=== PATIENT | male | born 1965 | race Caucasian/White ===

== ENCOUNTER 2016-08-05 21:06 | Emergency (ER) | payer MEDICAID ==
[2016-08-05 21:26] VITALS: BP 154/81; PULSE 93; TEMP 98.8; BMI 27.1
[2016-08-05] MEDS ORDERED: OXYCODONE HCL 5 MG TABLET PO ONE (21:31)
--- NOTE | 2016-08-05 21:34 | EDPRACDOC ---
- General Information Stated Complaint: RT HAND PAIN/SWELLING Time Seen by Provider: 08/05/16 21:26 Information Source: Patient Home Medications: Home Medications Alprazolam [Xanax] 0.25 mg PO DAILY PRN 10/17/15 Aspirin 325 mg PO DAILY 10/17/15 Docusate Sodium [Colace] 100 mg PO BID 10/17/15 Gabapentin [Neurontin] 300 mg PO TID 10/17/15 Iron Polysaccharide Complex [Poly-Iron] 150 mg PO DAILY 10/17/15 Oxycodone Immediate Release [Oxycodone Immediate Release (OxyIR)] 15 mg PO Q4H PRN 10/17/15 Sennosides/Docusate Sodium [Senna-Docusate Sodium Tablet] 2 each PO HS 10/17/15 Vitamin B Complex with C [Nephro-Luciano] 1 tab PO DAILY 10/17/15 Warfarin Sodium [Coumadin] 10 mg PO DAILY 10/17/15 Acetaminophen [Tylenol] 650 mg PO Q6H PRN 10/22/15 Furosemide [Lasix] 40 mg PO BID 10/22/15 Polyethylene Glycol 3350 [Miralax] 17 gm PO DAILY PRN 10/22/15 Probiotic Blend [Yuly Q] 1 tab PO BID 10/22/15 Metoprolol Tartrate [Lopressor] 25 mg PO BID 12/31/15 Mirtazapine 15 mg PO HS 12/31/15 Sertraline HCl 50 mg PO DAILY 12/31/15 Oxycodone Immediate Release [Oxycodone Immediate Release (OxyIR)] 5 mg PO Q6H PRN #20 tab 08/05/16 Allergies/Adverse Reactions: Allergies Allergy/AdvReac Type Severity Reaction Status Date / Time No Known Allergies Allergy Verified 11/04/15 08:54 - History of 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 NOW C/O RIGHT HAND SWELLING AND PAIN WITH DECREASED ROM OF 5TH FINGER Location: Reports: Right, Other (5TH METACARPAL) Mechanism: Reports: Blunt Trauma, Punch Circumstances: Reports: Work-Related Tetanus Up To Date?: No Associated Signs & Symptoms: Reports: Hand Pain, Other (SWELLING DECREASED ROM) ED Past Medical History - History Reviewed Yes Nurses notes reviewed and agree except as marked Travel Outside of [place] in the Last 3 Months?: No - Patient Medical History Cardiac History: Reports: Congestive Heart Failure, Valvular Heart Disease Respiratory History: Reports: Asthma Psychological History: Reports: Anxiety Systemic History: Reports: Anemia Additional Past Medical History: CHRONIC BACK PAIN Surgical History: Reports: Other (TRICUSPID AND MITRAL VALVE ANNULOPLASTY) - Social Medical History Smoking Status: Former smoker ETOH: None Substance Abuse: None Lives With: Other Lives In: Home EDM Review of Systems - Review of Systems ROS Negative Except as Marked: Yes All systems reviewed and were negative except as marked Constitutional: No Symptoms Reported. negative: Fever, Chills, Weakness, Fatigue, Loss of Appetite Eyes: No Symptoms Reported. negative: Redness, Blurred Vision, Double Vision, Discharge, Pain, Light Sensitive, Photophobia Ears: No Symptoms Reported. negative: Pain, Hearing Loss, Drainage, Ear Pulling Throat: No Symptoms Reported. negative: Pain, Swelling Nose: No Symptoms Reported. negative: Congestion, Bleeding, Discharge, Injection, Swelling, Deformity, Ecchymosis, Tender, Abrasion, Laceration Mouth: No Symptoms Reported. negative: Pain, Drooling Respiratory: No Symptoms Reported. negative: Cough, Brassy Cough, Barky Cough, Shortness of Breath, Wheezing, Hemoptysis Cardiovascular: No Symptoms Reported. negative: Chest Pain, Palpitations, Syncope, Edema, Orthopnea, PND, Skin Mottling, Cyanosis Gastrointestinal: No Symptoms Reported. negative: Pain, Constipation, Nausea, Vomiting, Diarrhea, Melena, Formula Intolerance Genitourinary: No Symptoms Reported. negative: Dysuria, Hematuria, Frequency, Discharge, Bleeding, Testicular Pain, Neurological: No Symptoms Reported. negative: Headache, Dizziness, Seizure, Numbness, Weakness, Speech Difficulty, Gait Difficulty Musculoskeletal: Hand (RIGHT LATERAL HAND SWELLING DECREASED ROM). negative: Arm, Ankle, Back, Chestwall, Elbow, Forearm, Femur, Foot, Hip, Knee, Leg, Neck, Pelvis, Ribs, Shoulder, Wrist Integumentary: No Symptoms Reported. negative: Itching, Rash, Bruising, Wound Allergic/Immunologic: No Symptoms Reported. negative: Hives, Itching Hematologic: No Symptoms Reported. negative: Lymphadenopathy, Easy Bruising, Easy Bleeding Endocrine: No Symptoms Reported. negative: Weight Gain, Weight Loss Psychiatric: No Symptoms Reported. negative: Anxiety, Depression, Hallucinations, Insomnia, Suicidal - Physical Exam Constitutional: No apparent distress, Alert (Awake) Oriented to: Time, Person, Place Last recorded Vital Signs: Last Vital Signs Temp 98.8 F 08/05/16 21:24 Pulse 93 08/05/16 21:24 Resp 20 08/05/16 21:24 BP 154/81 08/05/16 21:24 Pulse Ox 98 08/05/16 21:24 Oxygen Pulse Oxygen Saturation 98 O2 Device Room Air Oxygen Flow Rate Fraction of Inspired Oxygen ( FIO2) - HEENT Head: Normal ( normocephalic) Eye Exam: Normal (PERRL, EOMI, Sclera white) Oropharynx: Normal (Pharynx:Moist without exudate,Gums-no swelling) Tympanic Membrane: Normal ENT EAC: Normal TMJ: Normal Nose: No Symptoms Reported (septum midline) Neck: Normal (FROM, trachea at midline) - Respiratory/Cardiovascular Respiratory: Normal - CTA (BBS clear to auscultation without adventitious sounds ) Cardiovascular: Normal (RRR without murmur, gallop or rub) - GI Auscultation: Normal (NABS) Palpation: Normal (Soft,No rebound or guarding, non distended) Tenderness: Non tender Vinson's Sign: Negative - Bladder: Normal - Musculoskeletal Back: Normal (Non-Tender) Extremities: Normal (Normal tone, Pulses 2+ No cyanosis or edema, FROM) - Integumentary Skin: Normal, Warm, Dry Lymphatics: Normal (no adenopathy) - Neurologic Memory Impaired: Normal Motor Function: Normal (Normal tone, Pulses 2+ No cyanosis or edema, FROM) Cranial Nerve: Normal (CN II-X11 intact sensation, strength 5/5) Cerebellar: Normal Mood Description: Normal Perception: Normal ED Hand Problem Physical Exam - Musculoskeletal Hand: Swelling, Limited ROM, Mild Tenderness Wrist: Normal Digit: Normal Digit Strength: Normal Nail: Normal Nailbed: Normal Soft Tissue: Swelling Distal Function/Circulation: Normal - Integumentary Skin: Normal Lymphatics: Normal ED Procedures - Splinting HAND Location: RT Hand-Made Type: orthoglass Splint: ulnar (GUTTER) Pre-Proc Neuro Vasc Exam: normal Post-Proc Neuro Vasc Exam: normal Other Devices: Sling - Differential Diagnosis Contusion, Dislocation, Fracture, Metacarpal Fracture, Sprain - Diagnostic Imaging HAND Image interpreted by: Radiologist IMPRESSION: Fracture of the fifth metacarpal. Decision Time to Discharge: 21:52 - Departure Disposition: Home Condition: Stable Final Diagnosis: Boxers fracture Qualifiers: Encounter type: initial encounter Fracture type: closed Qualified Code(s): S62.309A - Unspecified fracture of unspecified metacarpal bone, initial encounter for closed fracture Instructions: Hand Fracture (ED) Education/Counseling Given To: Patient, Family Member Education/Counseling Given Regarding: Diagnosis, Treatment, Prognosis, Follow Up Referrals: Cornelio Nation MD [Primary Care Provider] - One Week Avelino De Santiago MD [Staff Physician] - One Week Prescriptions: Oxycodone Immediate Release [Oxycodone Immediate Release (OxyIR)] 5 mg PO Q6H PRN #20 tab PRN Reason: Pain Additional Instructions: RICE
--- NOTE | 2016-08-05 21:34 | DIRPT ---
CLINICAL DATA: Slammed hand in door. EXAM: RIGHT HAND - COMPLETE 3+ VIEW COMPARISON: None. FINDINGS: Fracture of the fifth metacarpal at the meta diaphysis distally. Mild dorsal angulation distal fracture fragment. Fracture does not enter the joint. Boxer's type fracture. IMPRESSION: Fracture of the fifth metacarpal. Electronically Signed By: Farhad Rodas M.D. On: 08/05/2016 21:31
== END 2016-08-05 22:03 | disposition home or self-care (01) ==
LOC: EDMC 21:06
DX: S62.396A Other fracture of fifth metacarpal bone, right hand, initial encounter for closed fracture (principal); W22.09XA Striking against other stationary object, initial encounter
CPT/HCPCS: 29125; 73130; 99283; J3490

== ENCOUNTER 2016-08-12 11:08 | Emergency (ER) | payer MEDICARE, MEDICAID ==
[2016-08-12 11:29] VITALS: BP 136/88; PULSE 97; TEMP 98.5; BMI 26.3
--- NOTE | 2016-08-12 11:54 | EDPRACDOC ---
- General Information Chief Complaint: Hand Pain Stated Complaint: RIGHT HAND PAIN Time Seen by Provider: 08/12/16 11:39 Information Source: Patient Mode of Arrival: Car Home Medications: Home Medications Alprazolam [Xanax] 0.25 mg PO DAILY PRN 10/17/15 Aspirin 325 mg PO DAILY 10/17/15 Docusate Sodium [Colace] 100 mg PO BID 10/17/15 Gabapentin [Neurontin] 300 mg PO TID 10/17/15 Iron Polysaccharide Complex [Poly-Iron] 150 mg PO DAILY 10/17/15 Oxycodone Immediate Release [Oxycodone Immediate Release (OxyIR)] 15 mg PO Q4H PRN 10/17/15 Sennosides/Docusate Sodium [Senna-Docusate Sodium Tablet] 2 each PO HS 10/17/15 Vitamin B Complex with C [Nephro-Luciano] 1 tab PO DAILY 10/17/15 Warfarin Sodium [Coumadin] 10 mg PO DAILY 10/17/15 Acetaminophen [Tylenol] 650 mg PO Q6H PRN 10/22/15 Furosemide [Lasix] 40 mg PO BID 10/22/15 Polyethylene Glycol 3350 [Miralax] 17 gm PO DAILY PRN 10/22/15 Probiotic Blend [Yuly Q] 1 tab PO BID 10/22/15 Metoprolol Tartrate [Lopressor] 25 mg PO BID 12/31/15 Mirtazapine 15 mg PO HS 12/31/15 Sertraline HCl 50 mg PO DAILY 12/31/15 Oxycodone Immediate Release [Oxycodone Immediate Release (OxyIR)] 5 mg PO Q6H PRN #20 tab 08/05/16 Alprazolam [Xanax] 1 mg PO BID #14 tablet 08/12/16 Oxycodone HCl [Oxycodone Immediate Release] 15 mg PO TID #21 tab 08/12/16 Allergies/Adverse Reactions: Allergies Allergy/AdvReac Type Severity Reaction Status Date / Time No Known Allergies Allergy Verified 11/04/15 08:54 - History of Present Illness Onset: last week HPI: PT PRESENTS TODAY WITH RIGHT HAND PAIN. PT WAS SEEN HERE LAST WEEK AND DX WITH BOXER'S FRACTURE. STATES HE HAD A FOLLOW UP APPT TO GET ORTHO REFERRAL FOR HAND, BUT DR. ROMERO HAS CANCELLED D/T IN THE FAMILY. IT WAS CONFIRMED YESTERDAY THAT THIS IS TRUE AND THAT DR. ROMERO OFFICE IS SENDING PTS HERE FOR MEDICATION REFILLS. PT IS NOT CURRENTLY WEARING SPLINT BECAUSE HE STATED THAT HIS HAND BECAME MORE SWOLLEN AND THE SPLINT WAS PINCHING HIS SKIN. Location: Reports: Right, 4th Finger, 5th Finger Mechanism: Reports: Punch Circumstances: Reports: Work-Related Associated Signs & Symptoms: Reports: Hand Pain ED Past Medical History - History Reviewed Yes Nurses notes reviewed and agree except as marked - Patient Medical History Cardiac History: Reports: Congestive Heart Failure, Valvular Heart Disease Respiratory History: Reports: Asthma Psychological History: Reports: Anxiety. Denies: Depression Systemic History: Reports: Anemia Additional Past Medical History: CHRONIC BACK PAIN Surgical History: Reports: Other (TRICUSPID AND MITRAL VALVE ANNULOPLASTY) - Social Medical History Smoking Status: Heavy tobacco smoker (5 or more cigarettes/day or daily pipe/ cigar) EDM Review of Systems - Review of Systems ROS Negative Except as Marked: Yes All systems reviewed and were negative except as marked Constitutional: No Symptoms Reported Respiratory: No Symptoms Reported Cardiovascular: No Symptoms Reported Gastrointestinal: No Symptoms Reported Neurological: No Symptoms Reported Musculoskeletal: Hand Integumentary: Bruising, Other (SWELLING) - Physical Exam Constitutional: Alert (Awake), No apparent distress Oriented to: Time, Person, Place Last recorded Vital Signs: Last Vital Signs Temp 98.5 F 08/12/16 11:28 Pulse 97 08/12/16 11:28 Resp 20 08/12/16 11:28 BP 136/88 08/12/16 11:28 Pulse Ox 96 08/12/16 11:28 Oxygen Pulse Oxygen Saturation 96 O2 Device Room Air Oxygen Flow Rate Fraction of Inspired Oxygen ( FIO2) - HEENT Head: Normal Eye Exam: Normal Neck: Normal, Denies Pain, Midline - Respiratory/Cardiovascular Respiratory: Normal - CTA Cardiovascular: Normal - GI Palpation: Normal Tenderness: Non tender - Musculoskeletal Back: Normal Extremities: Other (NOTED BRUISING/SWELLING TO RIGHT HAND ALONG 4TH/5TH METACARPAL; COMPARTMENTS SOFT; CAP REFILL < 1) - Integumentary Skin: Normal Lymphatics: Normal - Neurologic Cerebellar: Normal Mood Description: Normal Thought: Coherent Perception: Normal ED Hand Problem Physical Exam - Musculoskeletal Hand: Swelling, Limited ROM, Moderate Tenderness Wrist: Normal Digit: Normal Digit Strength: Normal Nail: Normal Nailbed: Normal Soft Tissue: Tender, Swelling Distal Function/Circulation: Normal - Integumentary Skin: Ecchymosis, Swelling Lymphatics: Normal ED Procedures - Splinting 1st splint Location: RIGHT HAND Hand-Made Type: orthoglass Splint: ulnar Pre-Proc Neuro Vasc Exam: normal Post-Proc Neuro Vasc Exam: normal Other Devices: Other (PT HAS SLING AT HOME.) Decision Time to Discharge: 11:51 - Departure Disposition: Home Condition: Good Final Diagnosis: Fracture of hand, Medication refill, SPLINT-DANIELA Instructions: RICE: Routine Care for Injuries, Hand Fracture (ED) Education/Counseling Given To: Patient Education/Counseling Given Regarding: Diagnosis, Treatment, Follow Up Referrals: None,No Provider [Primary Care Provider] - One Week Prescriptions: Alprazolam [Xanax] 1 mg PO BID #14 tablet Oxycodone HCl [Oxycodone Immediate Release] 15 mg PO TID #21 tab Additional Instructions: PLEASE DO NOT REMOVE SPLINT. FOLLOW UP WITH PCP/ORTHO.
== END 2016-08-12 11:59 | disposition home or self-care (01) ==
LOC: ED 11:08 → EDMC 11:59
DX: S62.90XD Unspecified fracture of unspecified hand, subsequent encounter for fracture with routine healing (principal); X58.XXXD Exposure to other specified factors, subsequent encounter; Z76.0 Encounter for issue of repeat prescription
CPT/HCPCS: 29125; 99282